=== PATIENT | male | born 1980 | race African-American/Black ===

== ENCOUNTER → 2017-02-06 09:24 | Emergency (ER) | payer SELFPAY ==
[~2017-02-06 09:24] MED LIST: Pantoprazole IV* 40 MG IV ONE; Sucralfate TAB* 1 GM PO ONE
[2017-02-06 10:50] LABS: Hematocrit 45 % (42-52); Hemoglobin 15.3 g/dl (14.0-18.0); Mean Corpuscular HGB Conc 34 g/dl (31-36); Mean Corpuscular Hemoglobin 34 pg (27-31); Mean Corpuscular Volume 99 fL (80-94); Mean Platelet Volume 8 um3 (7.4-10.4); Red Blood Count 4.51 10^6/ul (4.0-5.4); Red Cell Distribution Width 13 % (10.5-15); White Blood Count 3.8 10^3/ul (3.5-10.8)
[2017-02-06 10:51] LABS: Add Diff/Slide Review? Slide Review Added; Comments Flag Yes
[2017-02-06 11:13] LABS: ALT 22 U/L (7-52); AST 18 U/L (13-39); Albumin 4.1 g/dL (3.2-5.2); Alkaline Phosphatase 66 U/L (34-104); Anion Gap 5 mmol/L (2-11); BUN/Creatinine Ratio 14.7 (8-20); Blood Urea Nitrogen 20 mg/dL (6-24); C Reactive Protein < 1.00 mg/L (< 5.00); CO2 Carbon Dioxide 28 mmol/L (22-32); Chloride 103 mmol/L (101-111); EGFR African American 77.1 (>60); Globulin 2.8 g/dL (2-4); Glucose 104 mg/dL (70-100); Lipase 24 U/L (11.0-82.0); Potassium 4.4 mmol/L (3.5-5.0); Sodium 136 mmol/L (133-145); Total Protein 6.9 g/dL (6.4-8.9)
[2017-02-06 11:44] LABS: Urine Bilirubin Negative (Negative); Urine Glucose Negative (Negative); Urine Nitrite Negative (Negative)
[2017-02-06 12:19] VITALS: BP 110/62
--- NOTE | 2017-02-08 16:48 | ED ---
Julio Cesar Vaughn Benjamin, scribed for Jimenez Matson MD on 02/06/17 at 1049 . Abdominal Pain/Male - HPI Summary HPI Summary: 36yo male c/o severe epigastric pain for 3 days. Pt states that he has been having similar symptoms fore quite a while and finally decided to come in after this episode. Pain is mostly in epigastric region but also tender diffusely. Pain is worse and mostly in the morning. Pt had multiple diarrhea episodes yesterday and had N/V on Monday. Pt states that he has been having difficulty sleeping due to pain and that certain sleeping position makes it worse. - History of Current Complaint Chief Complaint: EDAbdPain Stated Complaint: ABD PAIN/VOMITTING Time Seen by Provider: 02/06/17 10:15 Hx Obtained From: Patient Onset/Duration: Gradual Onset, Lasting Days - 3 days, Still Present Timing: Intermittent - mostly in the mornings Severity Initially: Severe Severity Currently: Moderate Pain Intensity: 5 Pain Scale Used: 0-10 Numeric Location: Epigastric Radiates: No Aggravating Factor(s): Nothing Alleviating Factor(s): Nothing Associated Signs And Symptoms: Positive: Nausea, Vomiting, Diarrhea. Negative: Fever, Back Pain, Constipation - Allergies/Home Medications Allergies/Adverse Reactions: Allergies Allergy/AdvReac Type Severity Reaction Status Date / Time No Known Allergies Allergy Verified 02/06/17 10:21 PMH/Surg Hx/FS Hx/Imm Hx - Surgical History Surgery Procedure, Year, and Place: RIGHT KNEE Infectious Disease History: Yes Infectious Disease History: Denies: Traveled Outside the [place] in Last 30 Days - Family History Known Family History: Positive: Cardiac Disease, Hypertension - Social History Alcohol Use: Weekly Alcohol Amount: Weekends a liter of hard liquor Substance Use Type: Reports: None Smoking Status (MU): Current Every Day Smoker Review of Systems Constitutional: Negative Negative: Fever Eyes: Negative ENT: Negative Cardiovascular: Negative Negative: Chest Pain Respiratory: Negative Positive: Abdominal Pain, Vomiting, Diarrhea, Nausea Genitourinary: Negative Positive: no symptoms reported Musculoskeletal: Negative Skin: Negative Neurological: Negative Psychological: Normal All Other Systems Reviewed And Are Negative: Yes Physical Exam Triage Information Reviewed: Yes Vital Signs On Initial Exam: Initial Vitals Temp Pulse Resp BP Pulse Ox 97.0 F 62 16 131/83 100 02/06/17 09:34 02/06/17 09:34 02/06/17 09:34 02/06/17 09:34 02/06/17 09:34 Vital Signs Reviewed: Yes Appearance: Positive: Well-Appearing, No Pain Distress, Well-Nourished Skin: Positive: Warm, Skin Color Reflects Adequate Perfusion, Dry Head/Face: Positive: Normal Head/Face Inspection Eyes: Positive: Normal, Conjunctiva Clear ENT: Positive: Normal ENT inspection, Hearing grossly normal Neck: Positive: Supple, Nontender Respiratory/Lung Sounds: Positive: Clear to Auscultation, Breath Sounds Present Cardiovascular: Positive: RRR, Pulses are Symmetrical in both Upper and Lower Extremities Abdomen Description: Positive: Soft. Negative: Nontender - episgastric and LUQ Bowel Sounds: Positive: Present Musculoskeletal: Positive: Strength/ROM Intact Neurological: Positive: Sensory/Motor Intact, Alert, Oriented to Person Place, Time Psychiatric: Positive: Affect/Mood Appropriate - Petey Coma Scale Coma Scale Total: 15 Diagnostics - Vital Signs Vital Signs Temp Pulse Resp BP Pulse Ox 02/06/17 10:18 62 99 02/06/17 10:16 133/91 02/06/17 09:34 97.0 F 62 16 131/83 100 - Laboratory Lab Results: Lab Results 02/06/17 02/06/17 02/06/17 Range/Units 10:39 10:39 10:39 WBC 3.8 (3.5-10.8) 10^3/ul RBC 4.51 (4.0-5.4) 10^6/ul Hgb 15.3 (14.0-18.0) g/dl Hct 45 (42-52) % MCV 99 H (80-94) fL MCH 34 H (27-31) pg MCHC 34 (31-36) g/dl RDW 13 (10.5-15) % Plt Count 185 (150-450) 10^3/ul MPV 8 (7.4-10.4) um3 Neut % (Auto) 48.9 (38-83) % Lymph % (Auto) 38.6 (25-47) % Castro % (Auto) 10.1 H (1-9) % Eos % (Auto) 1.1 (0-6) % Baso % (Auto) 1.3 (0-2) % Absolute Neuts (auto) 1.8 (1.5-7.7) 10^3/ul Absolute Lymphs (auto) 1.5 (1.0-4.8) 10^3/ul Absolute Monos (auto) 0.4 (0-0.8) 10^3/ul Absolute Eos (auto) 0 (0-0.6) 10^3/ul Absolute Basos (auto) 0.1 (0-0.2) 10^3/ul Absolute Nucleated RBC 0.01 10^3/ul Nucleated RBC % 0.2 Sodium 136 (133-145) mmol/L Potassium 4.4 (3.5-5.0) mmol/L Chloride 103 (101-111) mmol/L Carbon Dioxide 28 (22-32) mmol/L Anion Gap 5 (2-11) mmol/L BUN 20 (6-24) mg/dL Creatinine 1.36 H (0.67-1.17) mg/dL Est GFR ( Amer) 77.1 (>60) Est GFR (Non-Af Amer) 60.0 (>60) BUN/Creatinine Ratio 14.7 (8-20) Glucose 104 H (70-100) mg/dL Lactic Acid 1.0 (0.5-2.0) mmol/L Calcium 9.0 (8.6-10.3) mg/dL Total Bilirubin 0.60 (0.2-1.0) mg/dL AST 18 (13-39) U/L ALT 22 (7-52) U/L Alkaline Phosphatase 66 (34-104) U/L C-Reactive Protein < 1.00 (< 5.00) mg/L Total Protein 6.9 (6.4-8.9) g/dL Albumin 4.1 (3.2-5.2) g/dL Globulin 2.8 (2-4) g/dL Albumin/Globulin Ratio 1.5 (1-3) Lipase 24 (11.0-82.0) U/L Urine Color Urine Appearance Urine pH (5-9) Ur Specific [place] (1.010-1.030) Urine Protein (Negative) Urine Ketones (Negative) Urine Blood (Negative) Urine Nitrate (Negative) Urine Bilirubin (Negative) Urine Urobilinogen (Negative) Ur Leukocyte Esterase (Negative) Urine Glucose (Negative) 02/06/17 Range/Units 11:27 WBC (3.5-10.8) 10^3/ul RBC (4.0-5.4) 10^6/ul Hgb (14.0-18.0) g/dl Hct (42-52) % MCV (80-94) fL MCH (27-31) pg MCHC (31-36) g/dl RDW (10.5-15) % Plt Count (150-450) 10^3/ul MPV (7.4-10.4) um3 Neut % (Auto) (38-83) % Lymph % (Auto) (25-47) % Castro % (Auto) (1-9) % Eos % (Auto) (0-6) % Baso % (Auto) (0-2) % Absolute Neuts (auto) (1.5-7.7) 10^3/ul Absolute Lymphs (auto) (1.0-4.8) 10^3/ul Absolute Monos (auto) (0-0.8) 10^3/ul Absolute Eos (auto) (0-0.6) 10^3/ul Absolute Basos (auto) (0-0.2) 10^3/ul Absolute Nucleated RBC 10^3/ul Nucleated RBC % Sodium (133-145) mmol/L Potassium (3.5-5.0) mmol/L Chloride (101-111) mmol/L Carbon Dioxide (22-32) mmol/L Anion Gap (2-11) mmol/L BUN (6-24) mg/dL Creatinine (0.67-1.17) mg/dL Est GFR ( Amer) (>60) Est GFR (Non-Af Amer) (>60) BUN/Creatinine Ratio (8-20) Glucose (70-100) mg/dL Lactic Acid (0.5-2.0) mmol/L Calcium (8.6-10.3) mg/dL Total Bilirubin (0.2-1.0) mg/dL AST (13-39) U/L ALT (7-52) U/L Alkaline Phosphatase (34-104) U/L C-Reactive Protein (< 5.00) mg/L Total Protein (6.4-8.9) g/dL Albumin (3.2-5.2) g/dL Globulin (2-4) g/dL Albumin/Globulin Ratio (1-3) Lipase (11.0-82.0) U/L Urine Color Yellow Urine Appearance Clear Urine pH 6.0 (5-9) Ur Specific [place] 1.016 (1.010-1.030) Urine Protein Negative (Negative) Urine Ketones Negative (Negative) Urine Blood Negative (Negative) Urine Nitrate Negative (Negative) Urine Bilirubin Negative (Negative) Urine Urobilinogen Negative (Negative) Ur Leukocyte Esterase Negative (Negative) Urine Glucose Negative (Negative) Result Diagrams: 02/06/17 10:39 02/06/17 10:39 Lab Statement: Any lab studies that have been ordered have been reviewed, and results considered in the medical decision making process. Re-Evaluation - Re-Evaluation First Eval Re-Evaluation Time: 12:03 Comment: Reviewed pt's lab results with the pt. Abdominal Pain Fem Course/Dx - Course Course Of Treatment: Mr. Hernandez presented with a significant history of epigastric pain. His W/U was OK and he improved somewhat with GI meds. He may simply have some gastritis or it could be an ulcer. I will start prilosec and encourage GI F/U. - Diagnoses Provider Diagnoses: Epigastric abdominal pain Discharge - Discharge Plan Condition: Stable Disposition: HOME Prescriptions: Omeprazole CAP* [Prilosec CAP* 20 MG] 20 mg PO BID #20 cap. Patient Education Materials: Epigastric Pain (ED) Forms: *Work Release Referrals: Oumar Quintanilla MD [Medical Doctor] - Sara Edwards MD [Primary Care Provider] - The documentation as recorded by the Julio Cesar spencer Benjamin accurately reflects the service I personally performed and the decisions made by me, Jimenez Matson MD.
== END | disposition home or self-care (01) ==
LOC: ED 09:24
DX: R11.2 Nausea with vomiting, unspecified (principal); R19.7 Diarrhea, unspecified; F17.210 Nicotine dependence, cigarettes, uncomplicated; R10.13 Epigastric pain
CPT/HCPCS: 36415; 80053; 81003; 83605; 83690; 85025; 86140; 96374; 99282; A9270-GY

== ENCOUNTER → 2017-04-02 10:45 | Emergency (ER) | payer SELFPAY ==
[2017-04-02 10:50] VITALS: BP 147/84
--- NOTE | 2017-04-11 14:46 | ED ---
Laurie Vaughn Alfonso, scribed for Miguel Sanchez MD on 04/02/17 at 1109 . Substance Abuse/Use - HPI Summary HPI Summary: This patient is a 36 year old M presenting to [facility] with a chief complaint of cocaine detox request, worse since yesterday. Patient reports my addiction is tearing my life and everything I worked so hard for down apart I have spent almost $1000 in the last two days Alexandra been using for 3 years this is not who I am... I got to get better for myself, my , and my kids. The patient rates the pain 0/10 in severity. Symptoms alleviated by nothing. Patient reports anxiety. Patient denies SI, and HI. - History Of Current Complaint Chief Complaint: EDDetoxRequest Stated Complaint: DETOX Time Seen by Provider: 04/02/17 10:56 Hx Obtained From: Patient Onset/Duration of Drug/ETOH Abuse: Increased Since: - 3 years Ingestion History: Type/Name Of Drug - Cocaine, Amount Ingested - $1000 in two days Timing Of Abuse: Daily Character: Anxious Alleviating Factor(s): Nothing Associated Signs And Symptoms: Other: - anxiety. Patient denies SI, and HI. - Allergies/Home Medications Allergies/Adverse Reactions: Allergies Allergy/AdvReac Type Severity Reaction Status Date / Time No Known Allergies Allergy Verified 04/02/17 10:50 PMH/Surg Hx/FS Hx/Imm Hx Opthamlomology History: Denies: Hx Legally Blind EENT History: Denies: Hx Deafness - Surgical History Surgery Procedure, Year, and Place: RIGHT KNEE Infectious Disease History: No Infectious Disease History: Denies: Traveled Outside the [place] in Last 30 Days - Family History Known Family History: Positive: Cardiac Disease, Hypertension - Social History Alcohol Use: Weekly Alcohol Amount: Weekends a liter of hard liquor Hx Substance Use: Yes Substance Use Type: Reports: Cocaine Hx Tobacco Use: Yes Smoking Status (MU): Current Every Day Smoker Review of Systems Negative: Fever Neurological: Other - cocaine detox request Psychological: Other - Negative SI, and HI. Positive: Anxious All Other Systems Reviewed And Are Negative: Yes Physical Exam - Summary Physical Exam Summary: VITAL SIGNS: Reviewed. GENERAL: Patient is a well-developed and nourished male who is lying comfortable in the stretcher. Patient is not in any acute respiratory distress. HEAD AND FACE: No signs of trauma. No ecchymosis, hematomas or skull depressions. No sinus tenderness. EYES: PERRLA, EOMI x 2, No injected conjunctiva, no nystagmus. EARS: Hearing grossly intact. Ear canals and tympanic membranes are within normal limits. MOUTH: Oropharynx within normal limits. NECK: Supple, trachea is midline, no adenopathy, no JVD, no carotid bruit, no c- spine tenderness, neck with full ROM. CHEST: Symmetric, no tenderness at palpation LUNGS: Clear to auscultation bilaterally. No wheezing or crackles. CVS: Regular rate and rhythm, S1 and S2 present, no murmurs or gallops appreciated. ABDOMEN: Soft, non-tender. No signs of distention. No rebound no guarding, and no masses palpated. Bowel sounds are normal. EXTREMITIES: FROM in all major joints, no edema, no cyanosis or clubbing. NEURO: Alert and oriented x 3. No acute neurological deficits. Speech is normal and follows commands. SKIN: Dry and warm PSYCH: Emotional, crying, and sad, Denies any suicidal thoughts or plan. No homicidal thoughts or plan. No signs of psychosis or pressure speech. No tangential speech. Triage Information Reviewed: Yes Vital Signs On Initial Exam: Initial Vitals Temp Pulse Resp BP Pulse Ox 97.4 F 83 16 147/84 99 04/02/17 10:47 04/02/17 10:47 04/02/17 10:47 04/02/17 10:47 04/02/17 10:47 Vital Signs Reviewed: Yes Diagnostics - Vital Signs Vital Signs Temp Pulse Resp BP Pulse Ox 04/02/17 10:47 97.4 F 83 16 147/84 99 - Laboratory Lab Statement: Any lab studies that have been ordered have been reviewed, and results considered in the medical decision making process. Course/Dx - Course Assessment/Plan: This patient is a 36 year old M presenting to [facility] with a chief complaint of cocaine detox request, worse since yesterday. Patient reports my addiction is tearing my life and everything I worked so hard for down apart I have spent almost $1000 in the last two days Alexandra been using for 3 years this is not who I am... I got to get better for myself, my , and my kids. The patient rates the pain 0/10 in severity. Symptoms alleviated by nothing. Patient reports anxiety. Patient denies SI, and HI. This patient is requesting cocaine detox and has no other complains. He was given outpatient detox referrals and a prescription for Atarax for anxiety. Patient will be discharged with follow up from PCP and outpatient detox. The patient is agreeable with this plan. The patient is hemodynamically stable, alert and oriented x3. - Diagnoses Provider Diagnoses: Cocaine dependence Discharge - Discharge Plan Condition: Stable Disposition: HOME Prescriptions: hydrOXYzine HCL TAB* [Atarax 25 MG TAB*] 25 mg PO TID PRN #30 tab PRN Reason: Anxiety Patient Education Materials: Cocaine Abuse (ED) Referrals: Sara Edwards MD [Primary Care Provider] - 3 Days Additional Instructions: RETURN TO THE EMERGENCY DEPARTMENT FOR CHANGING OR WORSENING SYMPTOMS. The documentation as recorded by the Laurie spencer Alfonso accurately reflects the service I personally performed and the decisions made by Daniel ritchie Walter, MD.
== END | disposition home or self-care (01) ==
LOC: ED 10:45
DX: F14.20 Cocaine dependence, uncomplicated (principal); F17.200 Nicotine dependence, unspecified, uncomplicated
CPT/HCPCS: 99282

== ENCOUNTER 2018-02-19 10:19 | Emergency (ER) | payer SELFPAY ==
--- NOTE | 2018-02-19 11:05 | ED ---
Upper Extremity Pain - HPI Summary HPI Summary: Patient is a 37 y/o M w/ c/o right shoulder pain onsetting three days ago. After work three days ago, patient went out, drank alc, returned home and found himself locked out. He states that he attempted to gain entry by standing on a chair and jumping onto his balcony. 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 Patient regained his holding and lifted himself onto the balcony of his home. Since then, he has been experiencing pain at his right shoulder and reports that he cannot lift his right arm above his chest due to pain. Patient also reports that he hears a "pop " with certain movements. Patient denies fever, chills, RUSS, ear pain, sore throat, blurred vision, double vision, neck pain, CP, SOB, ABD pain, nausea, vomiting back pain, dysuria, hematuria, blood in the stool, edema, bruising, and rashes On triage, pain is rated 9/10, movement is noted to aggravate Sx, nothing is reported to alleviate. Home medications and allergies are reviewed. - History of Current Complaint Chief Complaint: EDShoulderClavicMookj Stated Complaint: HURT RIGHT HAND Hx Obtained From: Patient Mechanism Of Injury: Other - slipped, hanging from balcony by his right arm Onset/Duration: Still Present Timing: Constant Severity Currently: Severe - 9/10 Pain Location: Shoulder - right Aggravating Factor(s): Movement, Lifting Alleviating Factor(s): Nothing Associated Signs & Symptoms: Positive: Negative - Allergies/Home Medications Allergies/Adverse Reactions: Allergies Allergy/AdvReac Type Severity Reaction Status Date / Time No Known Allergies Allergy Verified 02/19/18 10:36 PMH/Surg Hx/FS Hx/Imm Hx Sensory History: Denies: Hx Legally Blind, Hx Deafness Opthamlomology History: Denies: Hx Legally Blind EENT History: Denies: Hx Deafness - Surgical History Surgery Procedure, Year, and Place: RIGHT KNEE Infectious Disease History: No Infectious Disease History: Denies: Traveled Outside the [place] in Last 30 Days - Family History Known Family History: Positive: Cardiac Disease, Hypertension - Social History Alcohol Use: Weekly Alcohol Amount: Weekends a liter of hard liquor Hx Substance Use: Yes Substance Use Type: Reports: None Hx Tobacco Use: Yes Smoking Status (MU): Current Every Day Smoker Review of Systems Negative: Fever, Chills Positive: Other - NEGATIVE: double vision . Negative: Blurred Vision Negative: Sore Throat, Ear Ache Negative: Chest Pain Negative: Shortness Of Breath Negative: Abdominal Pain, Vomiting, Diarrhea Positive: other - NEGATIVE: blood in stool . Negative: dysuria, hematuria Positive: Other - right shoulder pain . Negative: Edema Negative: Rash, Bruising Negative: Headache Negative: Anxious, Depressed All Other Systems Reviewed And Are Negative: No Physical Exam - Summary Physical Exam Summary: Appearance: Alert, conversive, nontoxic appearing Skin: Warm, dry, no mottling, no rashes, no contusions HEENT: EOMI, PERRL, moist mucous membranes Neck: No masses on the neck, supple Respiratory: Clear to auscultation, breath sounds present, no rales, no rhonchi , no wheezes Cardiovascular: RRR, pulses are symmetrical in both lower and upper extremities Abdomen: Soft, non-tender Bowel Sounds: Present Musculoskeletal: No CVA tenderness, no obvious deformity, decreased ROM at RUE, inability to raise RUE above horizontal plane Neurological: A&Ox3, CN II-XII Intact, moving all extremities symmetrically Psychiatric: Normal affect and mood Triage Information Reviewed: Yes Vital Signs On Initial Exam: Initial Vitals Temp Pulse Resp BP Pulse Ox 98.8 F 68 18 146/100 100 02/19/18 10:32 02/19/18 10:32 02/19/18 10:32 02/19/18 10:32 02/19/18 10:32 Vital Signs Reviewed: Yes Diagnostics - Vital Signs Vital Signs Temp Pulse Resp BP Pulse Ox 02/19/18 10:32 98.8 F 68 18 146/100 100 - Laboratory Lab Statement: Any lab studies that have been ordered have been reviewed, and results considered in the medical decision making process. - Radiology right shoulder x-ray Radiology Interpretation Completed By: Radiologist Summary of Radiographic Findings: Hill-Sachs Fracture, this report was reviewed by ED physician. Course/Dx - Course Course Of Treatment: Patient is a 37 y/o M w/ c/o right shoulder pain onsetting three days ago. After work three days ago, patient went out, drank alc, returned home and found himself locked out. He states that he attempted to gain entry by standing on a chair and jumping onto his balcony. 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 Patient regained his holding and lifted himself onto the balcony of his home. Since then, he has been experiencing pain at his right shoulder and reports that he cannot lift his right arm above his chest due to pain. Patient also reports that he hears a "pop" with certain movements. On physical exam, patient is noted to have decreased ROM at RUE, inability to raise RUE above horizontal plane. Right shoulder x-ray per radiologist showed Hill-Sachs Fracture. During ED course, patient was given Motrin 600 mg, Flexeril 10 mg, Tylenol 650 mg all PO. Patient was given a sling for his arm and instructed to follow up with ortho. He is agreeable with this plan. Dx of right shoulder fracture. - Diagnoses Provider Diagnoses: Shoulder fracture, right Discharge - Sign-Out/Discharge Documenting (check all that apply): Patient Departure - discharge - Discharge Plan Condition: Stable Disposition: HOME Prescriptions: Cyclobenzaprine TAB* [Flexeril 10 MG TAB*] 10 mg PO TID PRN #30 tab MDD 3 PRN Reason: Pain Patient Education Materials: Shoulder Sprain (ED) Forms: *Work Release Referrals: Jarocho Zheng MD [Medical Doctor] - Sara Edwards MD [Primary Care Provider] - Additional Instructions: You have a very small fracture to your left shoulder. wear the sling as instructed. you must call orthopedic surgery today for a follow up appt this week. take tylenol, motrin, and flexeril as instructed. return if worse or any new symptoms. - Billing Disposition and Condition Condition: STABLE Disposition: Home - Attestation Statements Document Initiated by Scribe: Yes Documenting Scribe: Juan Jose Meléndez Provider For Whom Gena is Documenting (Include Credential): Cathy Wang MD Scribe Attestation: Juan Jose Vaughn , scribed for Cathy Wang MD on 02/19/18 at 2028. Scribe Documentation Reviewed: Yes Provider Attestation: The documentation as recorded by the zoyaibJuan Jose kelly accurately reflects the service I personally performed and the decisions made by , Cathy Wang MD
--- NOTE | 2018-02-19 11:06 | RAD ---
INDICATION: Right shoulder injury. TECHNIQUE: 4 views of the right shoulder were obtained. FINDINGS: There is flattening of the superolateral aspect of the humeral head most consistent with a Hill-Sachs fracture suggesting prior anterior dislocation. No other fractures are seen. Joint spaces appear maintained. IMPRESSION: HILL-SACHS FRACTURE.
[2018-02-19] MEDS ORDERED: Cyclobenzaprine TAB* 10 MG PO ONE (11:32)
[2018-02-19] MEDS ORDERED: Ibuprofen TAB* 600 MG PO ONE (11:32)
[2018-02-19] MEDS ORDERED: Acetaminophen TAB* 325 MG PO ONE (11:32)
[2018-02-19 12:13] VITALS: BP 145/96
== END 2018-02-19 12:13 | disposition home or self-care (01) ==
LOC: ED 10:19
DX: S42.291A Other displaced fracture of upper end of right humerus, initial encounter for closed fracture (principal); W18.40XA Slipping, tripping and stumbling without falling, unspecified, initial encounter; Y93.89 Activity, other specified; Y92.008 Other place in unspecified non-institutional (private) residence as the place of occurrence of the external cause
CPT/HCPCS: 99282; A9270-GY

== ENCOUNTER 2022-12-18 03:40 | Inpatient (IN) ==
[2022-12-18] MEDS ORDERED: NS 0.9% 1000 ml BAG 1,000 ML IV ONE (03:46)
[2022-12-18 04:05] LABS: Venous Bicarbonate HCO3 21.9 mmol/L (24-28)
[2022-12-18] MEDS ORDERED: Naloxone 0.4 mg VIAL 0.4 mg/ml 1 ml VIAL ONE (04:06)
[2022-12-18 04:08] LABS: ABS Lymphocytes 1.5 10^3/uL (1.0-4.8); ABS Monocytes 0.3 10^3/uL (0.0-1.1); ABS Neutrophils 10.8 10^3/uL (1.5-7.6); Eosinophil % 0.1 %; Hematocrit 45.7 % (38-53); Hemoglobin 15.6 g/dL (13.2-16.3); Lymphocyte % 11.9 %; Mean Corpuscular Hemoglobin 32.6 pg (27-33); Mean Corpuscular Hgb Conc 34.1 g/dL (31-36); Mean Corpuscular Volume 95.6 fL (80-97); Platelet Count 273 10^3/uL (150-450); Red Blood Count 4.77 10^6/uL (4.06-5.63); White Blood Count 12.7 10^3/uL (3.6-10.2)
[2022-12-18 04:27] LABS: ALT 91 U/L (7-52); AST 77 U/L (13-39); Albumin 4.5 g/dL (3.2-5.2); Albumin/Globulin Ratio 1.7 (1-3); Alkaline Phosphatase 95 U/L (35-149); Anion Gap 12 mmol/L (2-16); Blood Urea Nitrogen 29 mg/dL (6-24); CO2 Carbon Dioxide 26 mmol/L (22-32); Calcium 8.7 mg/dL (8.6-10.3); Chloride 98 mmol/L (101-111); Creatinine, Serum 1.75 mg/dL (0.67-1.17); Globulin 2.7 g/dL (2-4); Glucose 198 mg/dL (70-100); Potassium 3.9 mmol/L (3.5-5.0); Sodium 136 mmol/L (135-145); Total Protein 7.2 g/dL (6.4-8.9); eGFR CKD-EPI 49.9 (>60)
[2022-12-18 04:31] LABS: High Sens Troponin Baseline 58 pg/mL (<20)
[2022-12-18 04:54] LABS: Alcohol, S < 13 mg/dL (<13)
[2022-12-18 06:31] LABS: High Sensitivity Troponin 1 Hr 79 pg/mL (<20)
[2022-12-18 09:43] LABS: Venous Bicarbonate HCO3 20.3 mmol/L (24-28)
[2022-12-18 10:04] LABS: Creatinine, Serum 1.44 mg/dL (0.67-1.17); Potassium 4.9 mmol/L (3.5-5.0)
[2022-12-18 10:53] LABS: Urine Appearance Clear; Urine Bilirubin Negative (Negative); Urine Blood Negative (Negative); Urine Color Yellow; Urine Glucose Negative (Negative); Urine Ketones Negative (Negative); Urine Nitrite Negative (Negative); Urine Protein 1+(30 mg/dL) (Negative); Urine Specific Gravity 1.019 (1.002-1.030); Urine Urobilinogen Negative (Negative)
[2022-12-18 11:03] LABS: Urine Bacteria Absent (Absent); Urine Red Blood Cell Trace(0-2/hpf) (Absent); Urine Sperm Present (Absent); Urine White Blood Cell Trace(0-5/hpf) (Absent)
[2022-12-18 11:05] LABS: Urine Benzodiazepine Screen None Detected (None Detect); Urine Cannabinoids Screen Presumptive Positive (None Detect); Urine Opiates Screen None Detected (None Detect)
[2022-12-18 11:10] LABS: High Sensitivity Troponin 1 Hr 222 pg/mL (<20)
[2022-12-18] MEDS ORDERED: Metoprolol Tartrate 5 mg VIAL 5 ml VIAL (1 mg/ml) IV ONE (11:52)
[2022-12-18 12:33] LABS: Hemoglobin 15.8 g/dL (13.2-16.3); Mean Corpuscular Hemoglobin 32.9 pg (27-33); Mean Corpuscular Hgb Conc 34.4 g/dL (31-36); Mean Corpuscular Volume 95.6 fL (80-97); Mean Platelet Volume 7.9 fL (7.5-11.2); Platelet Count 225 10^3/uL (150-450); Red Blood Count 4.81 10^6/uL (4.06-5.63); White Blood Count 8.9 10^3/uL (3.6-10.2)
[2022-12-18 12:45] LABS: Creatinine, Serum 1.36 mg/dL (0.67-1.17); eGFR CKD-EPI 67.5 (>60)
[2022-12-18] MEDS: Heparin 5000 UNITS/ML 1 mL VIAL IV SCH (12:46)
[2022-12-18] MEDS: Heparin DRIP 25,000 UNITS BAG 25,000 UNITS/500 ML BAG IV SCH (12:47)
[2022-12-18 12:59] LABS: ABS Lymphocytes 0.9 10^3/uL (1.0-4.8); ABS Monocytes 0.4 10^3/uL (0.0-1.1); ABS Neutrophils 7.6 10^3/uL (1.5-7.6); ABS Nucleated RBC 0.01 10^3/ul; Lymphocyte % 10.4 %; Nucleated Red Blood Cells % 0.2 /100 WBC (0.0-0.4)
[2022-12-18] MEDS ORDERED: Ondansetron 4 mg VIAL 2 MG/ML 2 ml VIAL IV PRN (13:54)
[2022-12-18 20:12] LABS: Urine Creatinine Concentration 157.89 mg/dL (20.00-370.00)
[2022-12-18] MEDS: Miconazole TOPICAL CREAM 2% 30 GM TOPICAL SCH (21:27)
[2022-12-19 07:42] LABS: ABS Lymphocytes 2.9 10^3/uL (1.0-4.8); ABS Monocytes 0.6 10^3/uL (0.0-1.1); ABS Neutrophils 7.8 10^3/uL (1.5-7.6); ABS Nucleated RBC 0.01 10^3/ul; Eosinophil % 0.3 %; Hematocrit 41.3 % (38-53); Hemoglobin 14.2 g/dL (13.2-16.3); Lymphocyte % 25.6 %; Mean Corpuscular Hemoglobin 32.8 pg (27-33); Mean Corpuscular Hgb Conc 34.5 g/dL (31-36); Mean Corpuscular Volume 95.2 fL (80-97); Mean Platelet Volume 7.7 fL (7.5-11.2); Nucleated Red Blood Cells % 0.1 /100 WBC (0.0-0.4); Platelet Count 202 10^3/uL (150-450); Red Blood Count 4.34 10^6/uL (4.06-5.63); Red Cell Distribution Width 13.9 % (12-17); White Blood Count 11.3 10^3/uL (3.6-10.2)
[2022-12-19 07:58] LABS: Calcium 8.1 mg/dL (8.6-10.3); Creatinine, Serum 1.27 mg/dL (0.67-1.17); HDL Cholesterol 51.8 mg/dL; Potassium 3.7 mmol/L (3.5-5.0); eGFR CKD-EPI 73.2 (>60)
[2022-12-19] MEDS: Heparin 5000 UNITS/ML 1 mL VIAL IV SCH (08:01)
[2022-12-19] MEDS: Miconazole TOPICAL CREAM 2% 30 GM TOPICAL SCH ×2 (08:03→20:41)
[2022-12-19] MEDS ORDERED: Potassium Chlor 20 meq TAB.ER PO ONE (08:38)
[2022-12-19 11:44] LABS: High Sensitivity Troponin 1 Hr 43 pg/mL (<20)
[2022-12-19] MEDS: Heparin DRIP 25,000 UNITS BAG 25,000 UNITS/500 ML BAG IV SCH (13:23)
[2022-12-20 05:55] LABS: Hematocrit 39.5 % (38-53); Hemoglobin 14.1 g/dL (13.2-16.3); Mean Corpuscular Hemoglobin 33.7 pg (27-33); Mean Corpuscular Hgb Conc 35.7 g/dL (31-36); Mean Corpuscular Volume 94.3 fL (80-97); Mean Platelet Volume 8.3 fL (7.5-11.2); Platelet Count 190 10^3/uL (150-450); Red Blood Count 4.19 10^6/uL (4.06-5.63)
[2022-12-20 06:11] LABS: Albumin 3.7 g/dL (3.2-5.2); Albumin/Globulin Ratio 1.4 (1-3); Calcium 8.7 mg/dL (8.6-10.3); Creatinine, Serum 1.14 mg/dL (0.67-1.17); Globulin 2.7 g/dL (2-4); Potassium 3.5 mmol/L (3.5-5.0); Total Bilirubin 0.7 mg/dL (0.2-1.0); Total Protein 6.4 g/dL (6.4-8.9); eGFR CKD-EPI 83.4 (>60)
[2022-12-20 06:18] LABS: ABS Basophils 0.1 10^3/uL (0.0-0.1); ABS Lymphocytes 3.3 10^3/uL (1.0-4.8); ABS Monocytes 0.8 10^3/uL (0.0-1.1); ABS Neutrophils 5.6 10^3/uL (1.5-7.6); Eosinophil % 0.4 %; Lymphocyte % 33.3 %
[2022-12-20] MEDS: Heparin DRIP 25,000 UNITS BAG 25,000 UNITS/500 ML BAG IV SCH (07:56)
[2022-12-20] MEDS ORDERED: KCL 20 MEQ/100 ML IVPREMIX 20 MEQ/100 ML BAG IV ONE (08:00)
[2022-12-20] MEDS ORDERED: Regadenoson 0.4 MG/5 ML SYRINGE ONE (11:49)
[2022-12-20] MEDS: Miconazole TOPICAL CREAM 2% 30 GM TOPICAL SCH (12:12)
[2022-12-20] MEDS ORDERED: Potassium Chlor 20 meq TAB.ER PO ONE (12:18)
[2022-12-20 14:37] VITALS: BP 138/110
== END 2022-12-20 16:46 | disposition home or self-care (01) | DRG 190 ==
LOC: ED 03:40 → EDHOLD 13:54 → SUATTDRO 13:54 → EDHOLD 12-19 13:34 → MEDTELE 12-19 13:51
PROVIDERS: ADMIT Internal Medicine; ATTEND Hospitalist